=== PATIENT | female | born 1960 | race Caucasian/White ===

== ENCOUNTER 2016-07-15 16:19 | Emergency (ER) | payer OTHER ==
[~2016-07-15] VITALS: Ht 177.8 cm; Wt 102.4 kg
[~2016-07-15 16:19] MED LIST: ALBUAER2 INH; CLR10 PO; DIPH25TA24 PO; EPP3/2 IM; FLNIN NAE; RANI150T3 PO; ZYRUNK PO
[2016-07-15 16:26] VITALS: TEMP 36.8; Ht 177.8 cm; Wt 102.4 kg
[2016-07-15] MEDS ORDERED: ALBUT/IPRATROP 3MG/0.5MG NEB 3 ML VIAL INH STA ×2 (16:27→16:55)
[2016-07-15] MEDS ORDERED: SODIUM CHLORIDE 0.9% 1000ML 1,000 ML IV STA (16:27)
[2016-07-15] MEDS ORDERED: METHYLPREDNISOLONE 125 MG VIAL IV STA (16:27)
[2016-07-15 16:34] VITALS: O2SAT 94
--- NOTE | 2016-07-15 16:45 | EMERGENCY ROOM VISIT NOTE ---
History Report prepared by Javon: Paul Lucas Under the Supervision of: Dr. Grover Sommer D.O. First contact with patient: 16:20 Chief Complaint: SHORTNESS OF BREATH Stated Complaint: SOB Nursing Triage Summary: Patient had exposure to stove cleaner used in med room. Presents with difficulty taking deep breath, hoarsness, and epigastric pressure. History of Present Illness The patient is a 56 year old female who presents to the Emergency Room with complaints of an episode of shortness of breath occurring just [employer]. 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 She reports having hoarseness, and epigastric pressure. She admits to taking Benadryl and Zantac. She has an inhaler but did not use it. The patient has a history of bronchospasms when exposed to cleaning agents. Source of History: patient Onset: just [employer] Position: other (lungs) Quality: other (shortness of breath) Timing: other (episode) Associated Symptoms: + abdominal pain (epigastric pressure) Review of Systems See HPI for pertinent positives & negatives. A total of 10 systems reviewed and were otherwise negative. Past Medical & Surgical Medical Problems: (1) Bronchospasm Family History No pertinent family history stated. Social History Smoking Status: Never Smoker Alcohol Use: none Drug Use: none Marital Status: Housing Status: lives with family Occupation Status: employed Current/Historical Medications Scheduled Cetirizine (Zyrtec Unkown Dose), 10 MG PO DAILY Epinephrine (Epipen), 0.3 MG IM UD Epinephrine (Epipen 2-Ji), 1 DOSE IM DIRECTED Prednisone (Prednisone Tab), 20 MG PO DIRECTED Scheduled PRN Albuterol (Ventolin), 2 PUFFS INH Q4 PRN for SOB/Wheezing Diphenhydramine Hcl (Benadryl), 50-75 MG PO UD PRN for ALLERGIES Ranitidine Hcl (Zantac), 1-2 TABS PO UD PRN for PRN Allergies Coded Allergies: Formaldehyde (Verified Allergy, Severe, CAN NOT BREATHE, 07/15/16) BEE STING (Verified Allergy, Unknown, ANAPHYLAXIS, 07/15/16) Latex1 -Allergic Contact Dermititis (Verified Allergy, Unknown, rash, 07/15) Uncoded Allergies: HOSPITAL ROD BUSTER (Allergy, Severe, SHORTNESS OF BREATH, 07/15/16) PERFUME (Allergy, Severe, CHEST TIGHTNESS, LOSE VOICE, 02/14/14) CATS (Allergy, Intermediate, FLU SYMPTOMS, 02/14/14) ENVIRONMENTAL (Allergy, Intermediate, SNEEZING, ITCHY EYES, 02/14/14) Physical Exam Vital Signs Date Time Temp Pulse Resp B/P Pulse Ox O2 Delivery O2 Flow Rate FiO2 07/15/16 18:04 83 18 115/80 97 07/15/16 17:13 82 18 143/78 96 Room Air 07/15/16 16:36 77 07/15/16 16:34 94 Room Air 07/15/16 16:26 36.8 78 22 129/90 96 Room Air Physical Exam GENERAL: Patient is awake alert, very anxious appearing. EYES: The conjunctivae are clear. The pupils are round and reactive. EARS, NOSE, MOUTH AND THROAT: The nose is without any evidence of any deformity. Mucous membranes are moist tongue is midline NECK: No stridor noted. RESPIRATORY: Diminished throughout. shallow respirations noted with poor air movement. Mild conversational dyspnea. CARDIOVASCULAR: Tachycardic but regular. No murmur appreciated. GASTROINTESTINAL: The abdomen is soft. Bowel sounds are present in all quadrants. Abdomen is nontender MUSCULOSKELETAL/EXTREMITIES: There is no evidence of gross deformity full range of motion is noted in the hips and shoulders SKIN: There is no obvious evidence of any rash. There are no petechiae, pallor or cyanosis noted. NEUROLOGIC: Patient is awake alert and oriented x3. Medical Decision & Procedures ER Provider Diagnostic Interpretation: Radiology results as stated below per my review and radiologist interpretation: CHEST ONE VIEW PORTABLE FINDINGS: Moderate generalized interstitial prominence throughout both hemithoraces. Diaphragms smooth. Costophrenic angles are sharp. No evidence for cardiac enlargement. IMPRESSION: Nonspecific interstitial prominence primarily in the mid to lower lung regions bilaterally. A nonspecific pneumonitis is most likely. Electronically signed by: Tyrese Barajas M.D. 07/15/2016 4:46 PM Dictated Date/Time: 07/15/2016 4:45 PM Medications Administered Medications (Trade) Dose Ordered Sig/Chikis Route Start Time Stop Time Status Last Admin Dose Admin Sodium Chloride (Nss 1000ml) 1,000 ml @ 999 mls/hr Q1H1M STAT IV 07/15/16 16:27 07/15/16 17:27 DC 07/15/16 16:33 999 MLS/HR Methylprednisolone Sodium Succinate (Solu-Medrol IV) 125 mg NOW STAT IV 07/15/16 16:27 07/15/16 16:29 DC 07/15/16 16:33 125 MG Albuterol/ Ipratropium (Duoneb) 3 ml NOW STAT INH 07/15/16 16:27 2 16:29 DC 07/15/16 16:33 3 ML Albuterol/ Ipratropium (Duoneb) 3 ml NOW STAT INH 07/15/16 16:55 07/15/16 16:56 DC 07/15/16 16:56 3 ML ED Course 1626: The patient was evaluated in room C1B. A complete history and physical examination were performed. 1627: Ordered Duoneb 3 ml INH, Solu-Medrol IV 125 mg IV, and NSS 1,000 ml @ 999 mls/hr IV 1655: Ordered Duoneb 3 ml INH. 1740: Upon reevaluation, the patient is doing well. I discussed the results and treatment plan with the patient. She verbalized agreement of the treatment plan. The patient was discharged home. Medical Decision Differential diagnosis: Etiologies such as infections, reactive airway disease, pneumonia, pneumothorax , COPD, CHF, cardiac ischemia, pulmonary embolism, musculoskeletal, gastrointestinal, as well as others were entertained. Nursing notes reviewed. 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 The patient has had similar episodes in the past to the cleaning agents that are used in the emergency department. She had significant bronchospasm upon my initial valuation. The patient already had taken his Zantac as well as Benadryl. She was further treated with IV fluids and DuoNeb treatment and IV steroids. She was reevaluated multiple times. On subsequent reevaluation she was feeling much better. She was able to ambulate without dyspnea and did not have any further bronchospasm on auscultation. I discussed the patient's condition with her. She is very aware of these allergens. She was encouraged to continue all medications as prescribed. She was also encouraged to avoid work for a period of time. At this time she is scheduled to be off work the next few days. She was also encouraged to return to the emergency department immediately if symptoms change worsen or the need arises. Impression Primary Impression: Bronchospasm Additional Impression: Allergic reaction Scribe Attestation The scribe's documentation has been prepared under my direction and personally reviewed by me in its entirety. I confirm that the note above accurately reflects all work, treatment, procedures, and medical decision making performed by me. Departure Information Dispostion Home / Self-Care Prescriptions Prednisone (Prednisone Tab) 20 Mg Tab 20 MG PO DIRECTED, #20 TAB Prov: Grover Sommer, 07/15/16 Referrals Paul Puente,[email or web address] (PCP) Patient Instructions ED Allergic Reaction General Other, My [facility] Additional Instructions continue all medications as prescribed. return to the ER if symptoms worsen Problem Qualifiers
--- NOTE | 2016-07-15 16:47 | DIAGNOSTIC IMAGING REPORT ---
CHEST ONE VIEW PORTABLE CLINICAL HISTORY: EVALUATE ALLERGIC REACTION dyspnea COMPARISON STUDY: No previous studies for comparison. FINDINGS: Moderate generalized interstitial prominence throughout both hemithoraces. Diaphragms smooth. Costophrenic angles are sharp. No evidence for cardiac enlargement. IMPRESSION: Nonspecific interstitial prominence primarily in the mid to lower lung regions bilaterally. A nonspecific pneumonitis is most likely. Electronically signed by: Tyrese Barajas M.D. 07/15/2016 4:46 PM Dictated Date/Time: 07/15/2016 4:45 PM
[2016-07-15] MEDS ORDERED: PRED20TA2 PO (17:42)
[2016-07-15 18:04] VITALS: BP 115/80; PULSE 83; O2SAT 97
== END 2016-07-15 18:04 | disposition home or self-care (01) ==
LOC: EDBD 16:19 → C.EDC 16:20
DX: T78.40XA Allergy, unspecified, initial encounter (principal); J68.3 Other acute and subacute respiratory conditions due to chemicals, gases, fumes and vapors; X58.XXXA Exposure to other specified factors, initial encounter; Y92.238 Other place in hospital as the place of occurrence of the external cause; Y99.0 Civilian activity done for income or pay; Y93.89 Activity, other specified; T59.891A Toxic effect of other specified gases, fumes and vapors, accidental (unintentional), initial encounter